=== PATIENT | male | born 2000 | race African-American/Black ===

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

== ENCOUNTER 2018-03-20 23:47 | Emergency (ER) | payer OTHER ==
[2018-03-21 04:33] VITALS: BP 140/82
== END 2018-03-21 06:45 | disposition left against medical advice (07) ==
LOC: ER 23:47
DX: Z53.21 Procedure and treatment not carried out due to patient leaving prior to being seen by health care provider (principal)